=== PATIENT | male | born 1960 | race Caucasian/White ===

== ENCOUNTER 2017-07-10 20:34 | Emergency (ER) | payer OTHER ==
[~2017-07-10] VITALS: Ht 172.7 cm; Wt 86.2 kg
--- NOTE | 2017-07-10 20:45 | PHYS DOC ---
Past Medical History Past Medical History: Hypertension Past Surgical History: Cervical Fusion Additional Past Surgical Histo: sinus surgery; anterior cervical surgery Nov 2015 and again 07/08/17 Smoking: Cigarettes, Less than 1pk/day Social History Just moved to area Adult General Chief Complaint Chief Complaint: POST-OP PROBLEM HPI HPI Patient is a 56 year old who presents with post op pain. He had [facility]. Discharged 07/10/17 am and drain pulled. He states that this is a repeat and the incision is "slightly different" and "more to my right." His original left arm pain "is so much better " but now he has right shoulder blade pain, pain in his neck, pain in his chest. He has trouble breathing. He "hasn't filled my hydrocodone script yet because I have some leftover from a dental procedure but is it not doing anything for the pain." He does continue to smoke tobacco. No redness or drainage from the incision. No fevers. Review of Systems Review of Systems Constitutional: Denies fever or chills Eyes: Denies change in visual acuity, redness, or eye pain HENT: Denies nasal congestion. POS sore throat; POS pain with swallowing Respiratory: Denies cough; POS shortness of breath Cardiovascular: POS chest pain GI: Denies abdominal pain, nausea, vomiting, bloody stools or diarrhea : Denies dysuria or hematuria Musculoskeletal: Right sided neck pain and shoulder blade pain Integument: Denies rash or skin lesions; no incisional drainage or bleeding Neurologic: Denies headache, focal weakness or sensory changes Current Medications Current Medications Current Medications Medications (Trade) Dose Ordered Sig/Tiffanie Start Time Stop Time Status Last Admin Dose Admin Albuterol/ Ipratropium (Duoneb) 3 ml 1X ONCE 07/10/17 23:30 07/10/17 23:31 07/10/17 23:15 3 ML Fentanyl Citrate (Fentanyl 2ml Vial) 50 mcg PRN Q15MIN PRN 07/10/17 21:00 07/11/17 20:59 07/10/17 21:13 50 MCG Hydromorphone HCl (Dilaudid) 0.5 mg 1X ONCE 07/10/17 22:30 07/10/17 22:31 DC 07/10/17 22:17 0.5 MG Info (Do NOT chart on this entry -- for MONITORING) 1 each PRN DAILY PRN 07/10/17 22:15 07/12/17 22:14 Iohexol (Omnipaque 300 Mg/ml) 75 ml 1X ONCE 07/10/17 22:30 07/10/17 22:31 DC 07/10/17 22:33 75 ML Ondansetron HCl (Zofran) 4 mg 1X ONCE 07/10/17 21:15 07/10/17 21:16 DC 07/10/17 21:12 4 MG Sodium Chloride 1,000 ml @ 1,000 mls/hr Q1H 07/10/17 21:15 07/10/17 22:14 DC 07/10/17 21:13 1,000 MLS/HR Allergies Allergies Allergies Coded Allergies Type Severity Reaction Last Updated Verified codeine Adverse Reaction Mild NAUSEA 07/10/17 Yes Physical Exam Physical Exam Constitutional: Well developed, well nourished, no acute distress, non-toxic appearance. HENT: Normocephalic, atraumatic, bilateral external ears normal, oropharynx moist, no oral exudates, nose normal. Uvula with ulcerative lesions noted. Non swollen; no drooling; no stridor Eyes: PERRLA, EOMI, conjunctiva normal, no discharge. Neck: limited range of motion post op, incision intact; no drainage; no swelling. pain right supraspinatus and suprascapular region. Cardiovascular:tachycardic ,Heart rate regular rhythm, no murmur Lungs & Thorax: Bilateral breath sounds clear to auscultation Abdomen: Bowel sounds normal, soft, no tenderness, no masses, no pulsatile masses. Skin: Warm, dry, no erythema, no rash. Back: No tenderness, no CVA tenderness. Extremities: No tenderness, no cyanosis, no clubbing, ROM intact, no edema. Neurologic: Alert and oriented X 3, normal motor function, normal sensory function, no focal deficits noted. Psychologic: Affect normal, judgement normal, mood normal. Current Patient Data Vital Signs Vital Signs Date Time Temp Pulse Resp B/P (MAP) Pulse Ox O2 Delivery O2 Flow Rate FiO2 07/10/17 22:17 16 07/10/17 20:48 98.1 98 181/88 (119) 97 Room Air 98.1 Lab Values Laboratory Tests Test 07/10/17 21:10 White Blood Count 11.4 x10^3/uL (4.0-11.0) H Red Blood Count 4.24 x10^6/uL (4.30-5.70) L Hemoglobin 12.6 g/dL (13.0-17.5) L Hematocrit 37.4 % (39.0-53.0) L Mean Corpuscular Volume 88 fL (79-100) Mean Corpuscular Hemoglobin 30 pg (25-35) Mean Corpuscular Hemoglobin Concent 34 g/dL (31-37) Red Cell Distribution Width 14.2 % (11.5-14.5) Platelet Count 286 x10^3/uL (140-400) Neutrophils (%) (Auto) 55 % (31-73) Lymphocytes (%) (Auto) 33 % (24-48) Monocytes (%) (Auto) 7 % (0-9) Eosinophils (%) (Auto) 5 % (0-3) H Basophils (%) (Auto) 1 % (0-3) Neutrophils # (Auto) 6.2 x10^3uL (1.8-7.7) Lymphocytes # (Auto) 3.8 x10^3/uL (1.0-4.8) Monocytes # (Auto) 0.8 x10^3/uL (0.0-1.1) Eosinophils # (Auto) 0.5 x10^3/uL (0.0-0.7) Basophils # (Auto) 0.1 x10^3/uL (0.0-0.2) D-Dimer (Loida) 2.03 ug/mlFEU (0.00-0.50) H Sodium Level 140 mmol/L (136-145) Potassium Level 4.0 mmol/L (3.5-5.1) Chloride Level 100 mmol/L (98-107) Carbon Dioxide Level 32 mmol/L (21-32) Anion Gap 8 (6-14) Blood Urea Nitrogen 13 mg/dL (8-26) Creatinine 1.0 mg/dL (0.7-1.3) Estimated GFR (Cockcroft-Gault) 77.3 Glucose Level 104 mg/dL (70-99) H Calcium Level 9.2 mg/dL (8.5-10.1) Creatine Kinase 50 U/L (39-308) Troponin I Quantitative < 0.017 ng/mL (0.000-0.055) GE-Ohi-U-Type Natriuretic Peptide 253 pg/mL (0-124) H Laboratory Tests 07/10/17 21:10 Laboratory Tests 07/10/17 21:10 EKG EKG EKG interpreted by myself at 2107PM; NSR, leftward axis; non specific ST changes ; NO STEMI Radiology/Procedures Radiology/Procedures CXR interpreted by myself at 2125 PM no pneumothorax; no pleural effusion; normal lung avendaño. Normal cardiac silhouette Impressions: [facility] [address] [place] [address] IMAGING REPORT Signed PATIENT: BRADLEY CARLTON ACCOUNT: [id number] : 1960 LOCATION: ER AGE: 56 SEX: M EXAM STATUS: REG ER ORD. PHYSICIAN: JOHNATHON RIVAS MD REASON: elelv d dimer; CP; post op PROCEDURE: CT ANGIOGRAPHY CHEST Chest CTA History: Elevated d-dimer, chest pain Technique: After bolus of intravenous contrast, CT imaging was performed of the chest. Multiplanar reconstruction images to include MIP reconstruction images are submitted. Exposure: One or more of the following individualized dose reduction techniques were utilized for this examination: 1. Automated exposure control 2. Adjustment of the mA and/or kV according to patient size 3. Use of iterative reconstruction technique. Contrast: 75 cc Omnipaque 300 Comparison: None Findings: Accurate evaluation for more peripheral and smaller pulmonary emboli is limited due to degree of contrast opacification of more distal pulmonary arteries. No central pulmonary embolism is identified of the main or segmental branches. There is no lobar infiltrate, pleural or pericardial effusion, pneumothorax. Major airways are patent. There is some patchy atelectasis of the lower lobes bilaterally, also small subtle focus groundglass infiltrate of the right middle lobe. Thoracic aortic caliber is within normal limits without intraluminal flap. There are some small hilar nodes, largest on the left 0.8 cm short axis dimension. There are also some small mediastinal and axillary nodes. There is diffuse hepatic steatosis. There is accessory spleen. There is centrilobular emphysema with upper zone predominance. Impression: 1. Accurate evaluation for more peripheral and smaller pulmonary emboli is limited on this exam, no central pulmonary embolism identified. There is patchy atelectasis bilaterally, small focus groundglass infiltrate right middle lobe. 2. There is hepatic steatosis. 3. There is centrilobular emphysema with upper zone predominance. Electronically signed by: Cristina Johnson MD (07/10/2017 10:49 PM) [facility] DICTATED and SIGNED BY: CRISTINA JOHNSON MD DATE: 07/10/172240 CC: JOHNATHON RIVAS MD; UNKNOWN PCP NAME ~ [facility] [address] [place] [address] IMAGING REPORT Signed PATIENT: BRADLEY CARLTON ACCOUNT: [id number] : 1960 LOCATION: ER AGE: 56 SEX: M EXAM STATUS: REG ER ORD. PHYSICIAN: JOHNATHON RIVAS MD REASON: elelv d dimer; CP; post op PROCEDURE: CT SOFT TISSUE NECK W/CONTRAST CT SOFT TISSUE NECK W/CONTRAST dated 07/10/2017 10:23 PM Indication: Severe pain, status post cervical fusion Comparison: None available Technique: After administration of intravenous contrast, CT imaging was performed of the[neck], multiplanar reconstruction images submitted. One or more of the following individualized dose reduction techniques were utilized for this examination: 1. Automated exposure control 2. Adjustment of the mA and/or kV according to patient size 3. Use of iterative reconstruction technique. Findings: There has been anterior cervical fusion C3, C4, C5, C6, C7. There are interbody grafts at these levels. Cervical vertebral body stature and AP alignment are adequate. There is emphysema of the limited visualized lung apices. There is diffuse prominent prevertebral edema including more superiorly at the C2 level. Fluid/edema also tracks more anteriorly level C3 to C5-C6 such as on the right more medial and inferior to the right carotid artery, some mild enhancement at the periphery. There is multilevel cervical facet and uncovertebral degenerative change. Exam does not accurately evaluate cervical spinal canal. There is multilevel cervical neural foramina compromise greatest on the right at C3-4 and bilaterally at C6-7. There is patchy ethmoid air cell mucosal thickening IMPRESSION: 1. There has been multilevel anterior cervical fusion C3-C7. There is diffuse prevertebral edema, also nonspecific fluid tracking more anteriorly on the right of uncertain sterility, some mild enhancement at the periphery although discrete hawley not confidently seen posteriorly. 2. There is multilevel cervical neural foramina compromise due to facet and uncovertebral degenerative change. Electronically signed by: Cristina Johnson MD (07/10/2017 11:09 PM) [facility] DICTATED and SIGNED BY: CRISTINA JOHNSON MD DATE: 07/10/17 CC: JOHNATHON RIVAS MD; UNKNOWN PCP NAME ~ Course & Med Decision Making Course & Med Decision Making Pertinent Labs and Imaging studies reviewed. (See chart for details) Evaluated patient upon arrival. IV NS, IV fentanyl. Will check lab. At 2135 PM: d dimer pos. Will CT neck (for difficulty swallowing) and chest (for r/o PE). Patient states "I didn't even feel that pain medication." He was dosed fentanyl. Will admin. Dilaudid IV. At 2230 PM patient back from CT. At 2315 PM: CT results are back; neck shows fluid more on the right which is c/w his pain area. Chest shows no PE but patchy RML area. As he is a smoker concerned about potential for post op pneumonia. Duoneb dosed here.patient states he was not given an Incentive Spirometer from [facility]. Resp tx provided one here and gave the patient instructions. Rocephin IV and azithromax po. Will have him continue azithromax po at home; rx: percocet for pain and norflex. Needs to f/u w his surgeon and call in the am. Wound looks good and explained to patient that it will take time to absorb the post op subcut fluid. No evidence of abscess at this time. Dragon Disclaimer Dragon Disclaimer This electronic medical record was generated, in whole or in part, using a voice recognition dictation system. Departure Departure Impression: Primary Impression: Post-operative pain Additional Impression: Postop pneumonia Disposition: HOME, SELF-CARE Condition: STABLE Patient Instructions: Incentive Spirometer, Pneumonia, Adult Scripts Oxycodone/Apap 5-325 (PERCOCET 5-325 MG TABLET) 1 Each Tablet 1-2 TAB PO Q4-6HRS, #20 TAB Prov: JOHNATHON RIVAS MD 07/10/17 Azithromycin (AZITHROMYCIN TABLET) 250 Mg Tablet 250 MG PO DAILY for ANTI-BIOTIC for 7 Days, #7 TAB 0 Refills Prov: JOHNATHON RIVAS MD 07/10/17 Albuterol Sulfate (PROAIR HFA INHALER) 8.5 Gm Hfa.aer.ad 1 PUFF INH PRN Q6HRS Y for SHORTNESS OF BREATH, #1 INHALER 0 Refills Prov: JOHNATHON RIVAS MD 07/10/17 Problem Qualifiers JOHNATHON RIVAS MD Jul 10, 2017 20:45
[2017-07-10 20:48] VITALS: BP 181/88
[2017-07-10] MEDS ORDERED: fentaNYL PF VIAL 100 MCG/2 ML VIAL IV PRN (21:00)
[2017-07-10] MEDS ORDERED: IV NORMAL SALINE 1000ML BAG 1,000 ML IV SCH (21:15)
[2017-07-10] MEDS ORDERED: ONDANSETRON PF 4 MG/2 ML VIAL. IV ONE (21:15)
[2017-07-10 21:21] LABS: BASO # 0.1 x10^3/uL (0.0-0.2); BASO % 1 % (0-3); EOS % 5 % (0-3); HEMATOCRIT 37.4 % (39.0-53.0); HEMOGLOBIN 12.6 g/dL (13.0-17.5); LYMPH # 3.8 x10^3/uL (1.0-4.8); LYMPH % 33 % (24-48); MEAN CORPUSCULAR HEMOGLOBIN 30 pg (25-35); MEAN CORPUSCULAR HGB CONC 34 g/dL (31-37); MEAN CORPUSCULAR VOLUME 88 fL (79-100); MONO % 7 % (0-9); NEUT % 55 % (31-73); PLATELET COUNT 286 x10^3/uL (140-400); RED BLOOD COUNT 4.24 x10^6/uL (4.30-5.70); RED CELL DISTRIBUTION WIDTH 14.2 % (11.5-14.5); WHITE BLOOD COUNT 11.4 x10^3/uL (4.0-11.0)
[2017-07-10 21:30] LABS: CALCIUM 9.2 mg/dL (8.5-10.1); GFR 77.3
[2017-07-10] MEDS ORDERED: CONTRAST GIVEN MC PRN (22:15)
[2017-07-10] MEDS ORDERED: HYDROmorphone 2 MG/ML VIAL IV ONE (22:30)
[2017-07-10] MEDS ORDERED: IOHEXOL 300 MG/ML 75 ML VIAL IV ONE (22:30)
--- NOTE | 2017-07-10 22:52 | RAD ---
Chest CTA History: Elevated d-dimer, chest pain Technique: After bolus of intravenous contrast, CT imaging was performed of the chest. Multiplanar reconstruction images to include MIP reconstruction images are submitted. Exposure: One or more of the following individualized dose reduction techniques were utilized for this examination: 1. Automated exposure control 2. Adjustment of the mA and/or kV according to patient size 3. Use of iterative reconstruction technique. Contrast: 75 cc Omnipaque 300 Comparison: None Findings: Accurate evaluation for more peripheral and smaller pulmonary emboli is limited due to degree of contrast opacification of more distal pulmonary arteries. No central pulmonary embolism is identified of the main or segmental branches. There is no lobar infiltrate, pleural or pericardial effusion, pneumothorax. Major airways are patent. There is some patchy atelectasis of the lower lobes bilaterally, also small subtle focus groundglass infiltrate of the right middle lobe. Thoracic aortic caliber is within normal limits without intraluminal flap. There are some small hilar nodes, largest on the left 0.8 cm short axis dimension. There are also some small mediastinal and axillary nodes. There is diffuse hepatic steatosis. There is accessory spleen. There is centrilobular emphysema with upper zone predominance. Impression: 1. Accurate evaluation for more peripheral and smaller pulmonary emboli is limited on this exam, no central pulmonary embolism identified. There is patchy atelectasis bilaterally, small focus groundglass infiltrate right middle lobe. 2. There is hepatic steatosis. 3. There is centrilobular emphysema with upper zone predominance. Electronically signed by: Ranjeet Reid MD (07/10/2017 10:49 PM) [facility]
--- NOTE | 2017-07-10 23:13 | RAD ---
CT SOFT TISSUE NECK W/CONTRAST dated 07/10/2017 10:23 PM Indication: Severe pain, status post cervical fusion Comparison: None available Technique: After administration of intravenous contrast, CT imaging was performed of the[neck], multiplanar reconstruction images submitted. One or more of the following individualized dose reduction techniques were utilized for this examination: 1. Automated exposure control 2. Adjustment of the mA and/or kV according to patient size 3. Use of iterative reconstruction technique. Findings: There has been anterior cervical fusion C3, C4, C5, C6, C7. There are interbody grafts at these levels. Cervical vertebral body stature and AP alignment are adequate. There is emphysema of the limited visualized lung apices. There is diffuse prominent prevertebral edema including more superiorly at the C2 level. Fluid/edema also tracks more anteriorly level C3 to C5-C6 such as on the right more medial and inferior to the right carotid artery, some mild enhancement at the periphery. There is multilevel cervical facet and uncovertebral degenerative change. Exam does not accurately evaluate cervical spinal canal. There is multilevel cervical neural foramina compromise greatest on the right at C3-4 and bilaterally at C6-7. There is patchy ethmoid air cell mucosal thickening IMPRESSION: 1. There has been multilevel anterior cervical fusion C3-C7. There is diffuse prevertebral edema, also nonspecific fluid tracking more anteriorly on the right of uncertain sterility, some mild enhancement at the periphery although discrete hawley not confidently seen posteriorly. 2. There is multilevel cervical neural foramina compromise due to facet and uncovertebral degenerative change. Electronically signed by: Ranjeet Reid MD (07/10/2017 11:09 PM) [facility]
[2017-07-10] MEDS ORDERED: OXYC-323 PO (23:27)
[2017-07-10] MEDS ORDERED: PROAIR HFA8.5 GM INH (23:27)
[2017-07-10] MEDS ORDERED: AZIT250T6 PO (23:27)
[2017-07-10] MEDS ORDERED: IPRATRPIUM/ALBUTEROL 0.5/2.5MG 3 ML NEBU. NEB ONE (23:30)
[2017-07-10] MEDS ORDERED: AZITHROMYCIN 250 MG TABLET. PO ONE (23:45)
--- NOTE | 2017-07-11 06:19 | EKG ---
[facility] [address] [place] [address] Test Date: 2017-07-10 Test Time: 21:07:44 Pat Name: BRADLEY CARLTON Department: Room: Gender: Operator [employer]: : 1960 Requested By: JOHNATHON RIVAS Order Number: [id number] Reading MD: Sherry Carter Measurements Intervals Marshall Rate: 91 P: 48 MN: 150 QRS: -3 QRSD: 84 T: 14 QT: 326 QTc: 402 Interpretive Statements SINUS RHYTHM LEFTWARD AXIS OTHERWISE NORMAL ECG Electronically Signed On 07-12-2017 16:13:26 CDT by Sherry Carter
--- NOTE | 2017-07-11 07:23 | RAD ---
Chest radiograph 07/10/2017 10:59 PM Indication: Postop cervical fusion, fever and chest pain Comparison: None available Technique: Single portable upright frontal view of the chest is provided. Findings: Cardiomediastinal silhouette is within normal limits. No pleural effusions, pulmonary vascular congestion or pneumothorax. The lungs are clear. Partially profiled anterior cervical discectomy and fusion hardware. Impression: No acute cardiopulmonary process.
== END 2017-07-11 00:15 | disposition home or self-care (01) ==
LOC: ER 20:34
DX: G89.18 Other acute postprocedural pain (principal); J95.89 Other postprocedural complications and disorders of respiratory system, not elsewhere classified; I10 Essential (primary) hypertension; F17.210 Nicotine dependence, cigarettes, uncomplicated; Z98.1 Arthrodesis status; Z88.5 Allergy status to narcotic agent
CPT/HCPCS: 36415; 70491; 71010; 71275; 80048; 82550; 83880; 84484; 85025; 85379; 93005; 94250; 94640; 96361; 96365; 96375; 99285; J0690; J1170; J2405; J3010; J7030; J7620; Q0144; Q9967